=== PATIENT | female | born 1950 | race Caucasian/White ===

== ENCOUNTER 2018-06-19 05:14 | Inpatient (IN) | payer MEDICARE, MEDICAID ==
[~2018-06-19] VITALS: Ht 171.4 cm; Wt 88.5 kg
[~2018-06-19 05:14] MED LIST: CHOL400T PO; DAPA10TA PO; DILT-26 PO; DULO60CA44 PO; FISH1CAP2 PO; GABA-531 PO; HYDR-4009 PO; LEVO125T8 PO; LEVVL SQ; LOSA50TA20 PO; MONT10TA24 PO; PROAIR HFA INH; THIA100T72 PO; TIZA4TAB4 PO; TRAM50TA3 PO; UBID1CAP54 PO; novolog SUBCUT; victoza SUBCUT
[2018-06-19] MEDS ORDERED: SODIUM CHLORIDE 0.9% 1,000 ML IV ONE (06:10)
[2018-06-19] MEDS ORDERED: SODIUM CHLORIDE 0.9% 1000ML BAG (SEPSIS BOLUS) IV ONE (06:15)
[2018-06-19 06:50] LABS: BASOPHILS % 0.7 % (0.0-2.0); EOSINOPHILS % 4.3 % (0.0-5.0); HEMATOCRIT. 41.3 % (36.0-48.0); HEMOGLOBIN. 13.8 g/dL (12.0-16.0); LYMPHOCYTES % 50.6 % (20.0-50.0); MEAN CORPUSCULAR HEMOGLOBIN 30.2 pg (28.0-32.0); MEAN CORPUSCULAR VOLUME 90.1 fL (81.0-99.0); MEAN PLATELET VOLUME 7.9 fl (7.4-10.4); MONOCYTES % 8.6 % (2.0-8.0); NEUTROPHILS % 35.8 % (40.0-76.0); PLATELET 225 x1000/uL (130-400); RED BLOOD CELL COUNT 4.58 mill/uL (4.2-5.4); RED CELL DISTRIBUTION WIDTH 13.5 % (11.6-14.6)
[2018-06-19 06:55] LABS: INR 0.9; PROTHROMBIN TIME 9.2 sec (9.1-11.1)
[2018-06-19 06:57] LABS: CHLORIDE 100 mEq/L (98-107)
[2018-06-19 07:05] LABS: BETA HYDROXYBUTYRATE 0.1 mMol/L (0.0-0.3)
[2018-06-19] MEDS ORDERED: LIDOCAINE HCL 1% 20ML VIAL (Pyxis) INJ ONE (08:05)
[2018-06-19 08:22] LABS: CLARITY URINE CLEAR (CLEAR); COLOR URINE YELLOW (YELLOW); KETONES URINE NEGATIVE (NEGATIVE); LEUKOCYTE ESTERASE URINE NEGATIVE (NEGATIVE); NITRITE URINE NEGATIVE (NEGATIVE); OCCULT BLOOD URINE NEGATIVE (NEGATIVE); PROTEIN URINE NEGATIVE (NEGATIVE); SPECIFIC GRAVITY URINE 1.046 (1.005-1.030); UROBILINOGEN URINE 0.2 E.U./dL (0.2-1.0)
[2018-06-19] MEDS ORDERED: ONDANSETRON HCL 4MG/2ML INJ IV STA (08:30)
[2018-06-19] MEDS ORDERED: MORPHINE SULFATE 10 MG/ML CPJ IV STA (08:52)
[2018-06-19 15:40] VITALS: BP 144/63
[2018-06-19] MEDS ORDERED: CARB1TAB5 PO (16:40)
[2018-06-19] MEDS ORDERED: ALBU6.7H INH (16:40)
[2018-06-19] MEDS ORDERED: AMLO10TA80 PO (16:40)
[2018-06-19] MEDS ORDERED: PANT40TA4 PO (16:40)
[2018-06-19] MEDS ORDERED: IPRATROPIUM/ALBUTEROL 0.5-3(2.5)MG/3ML NEB HHN PRN (18:30)
[2018-06-19] MEDS ORDERED: DEXTROSE 50% WATER 50ML SYRINGE IV PRN (18:30)
[2018-06-19] MEDS: BLOOD SUGAR DIAGNOSTIC STRIP TEST SCH ×2 (18:31→20:22)
[2018-06-19 20:00] VITALS: BP 142/70
[2018-06-19] MEDS: AMLODIPINE 10MG TABLET PO SCH (20:20)
[2018-06-19] MEDS: MONTELUKAST SODIUM 10MG TABLET PO SCH (20:20)
[2018-06-19] MEDS: CARBIDOPA/LEVODOPA 25/250MG TABLET PO SCH (20:21)
[2018-06-19] MEDS: HYDROCODONE/ACETAMINOPHEN 10/325MG TABLET PO PRN (20:22)
[2018-06-19] MEDS: SODIUM CHLORIDE 0.45% 1,000 ML IV SCH (20:28)
[2018-06-19] MEDS: INSULIN LISPRO 100 UNITS/ML SUBCUT SCH (20:31)
[2018-06-19] MEDS: ENOXAPARIN 40MG/0.4ML SYR SUBCUT SCH (20:43)
[2018-06-19] MEDS: TRAMADOL 50MG TABLET PO PRN (21:56)
[2018-06-20] VITALS: BP 146/66
[2018-06-20] MEDS: HYDROCODONE/ACETAMINOPHEN 10/325MG TABLET PO PRN ×4 (02:14→22:26)
[2018-06-20] MEDS: TRAMADOL 50MG TABLET PO PRN ×2 (03:33→12:39)
[2018-06-20 04:00] VITALS: BP_SYST 112; BP_SYST 144; BP_DIAS 60; BP_DIAS 68; BP_DIAS 75
[2018-06-20] MEDS: BLOOD SUGAR DIAGNOSTIC STRIP TEST SCH ×4 (05:43→21:38)
[2018-06-20] MEDS: INSULIN LISPRO 100 UNITS/ML SUBCUT SCH ×7 (06:47→22:12)
[2018-06-20] MEDS ORDERED: DEXTROSE 50% WATER 50ML SYRINGE IV PRN (08:00)
[2018-06-20] MEDS: AMLODIPINE 10MG TABLET PO SCH ×2 (09:39→22:11)
[2018-06-20] MEDS: PANTOPRAZOLE 40MG DR TABLET PO SCH (09:39)
[2018-06-20] MEDS: DULOXETINE HCL 60MG DR CAPSULE PO SCH (09:39)
[2018-06-20] MEDS: GABAPENTIN 400MG CAPSULE PO SCH (09:39)
[2018-06-20] MEDS: LEVOTHYROXINE SODIUM 125MCG TABLET PO SCH (09:39)
[2018-06-20] MEDS: CARBIDOPA/LEVODOPA 25/250MG TABLET PO SCH ×3 (11:39→22:10)
[2018-06-20 12:00] VITALS: BP 145/66
[2018-06-20 16:00] VITALS: BP_SYST 105; BP_SYST 118; BP_SYST 124; BP_DIAS 57; BP_DIAS 62; BP_DIAS 64
[2018-06-20] MEDS: MONTELUKAST SODIUM 10MG TABLET PO SCH (17:09)
[2018-06-20] MEDS: SODIUM CHLORIDE 0.45% 1,000 ML IV SCH (17:10)
[2018-06-20 20:00] VITALS: BP_SYST 122; BP_SYST 125; BP_SYST 144; BP_DIAS 59; BP_DIAS 64; BP_DIAS 69
[2018-06-20] MEDS: ENOXAPARIN 40MG/0.4ML SYR SUBCUT SCH (22:11)
[2018-06-20] MEDS: TRESIBA 100 UNIT/ML SQ SCH (22:13)
[2018-06-20] MEDS: VICTOZA 18 MG/3 ML SQ SCH (22:13)
[2018-06-21] VITALS: BP 143/71
[2018-06-21] MEDS: TRAMADOL 50MG TABLET PO PRN ×2 (00:34→23:07)
[2018-06-21 03:08] LABS: CLARITY URINE CLEAR (CLEAR); COLOR URINE YELLOW (YELLOW); KETONES URINE NEGATIVE (NEGATIVE); LEUKOCYTE ESTERASE URINE 2+ (NEGATIVE); NITRITE URINE NEGATIVE (NEGATIVE); OCCULT BLOOD URINE 1+ (NEGATIVE); PH URINE 5.5 (4.5-8.0); PROTEIN URINE NEGATIVE (NEGATIVE); SPECIFIC GRAVITY URINE 1.018 (1.005-1.030); UROBILINOGEN URINE 0.2 E.U./dL (0.2-1.0)
[2018-06-21 04:00] VITALS: BP 134/65
[2018-06-21] MEDS: HYDROCODONE/ACETAMINOPHEN 10/325MG TABLET PO PRN ×3 (05:55→16:44)
[2018-06-21] MEDS: BLOOD SUGAR DIAGNOSTIC STRIP TEST SCH ×4 (07:40→21:09)
[2018-06-21 08:00] VITALS: BP 130/78
[2018-06-21] MEDS: LEVOTHYROXINE SODIUM 125MCG TABLET PO SCH (09:20)
[2018-06-21] MEDS: DULOXETINE HCL 60MG DR CAPSULE PO SCH (09:20)
[2018-06-21] MEDS: GABAPENTIN 400MG CAPSULE PO SCH (09:20)
[2018-06-21] MEDS: PANTOPRAZOLE 40MG DR TABLET PO SCH (09:20)
[2018-06-21] MEDS: AMLODIPINE 10MG TABLET PO SCH ×2 (09:20→21:13)
[2018-06-21] MEDS: INSULIN LISPRO 100 UNITS/ML SUBCUT SCH ×4 (09:22→21:00)
[2018-06-21 09:32] LABS: BASOPHILS % 0.2 % (0.0-2.0); EOSINOPHILS % 4.1 % (0.0-5.0); HEMATOCRIT. 40.9 % (36.0-48.0); LYMPHOCYTES % 42.9 % (20.0-50.0); MEAN CORPUSCULAR HEMOGLOBIN 30.2 pg (28.0-32.0); MEAN CORPUSCULAR VOLUME 88.5 fL (81.0-99.0); MEAN PLATELET VOLUME 7.7 fl (7.4-10.4); MONOCYTES % 6.5 % (2.0-8.0); NEUTROPHILS % 46.3 % (40.0-76.0); PLATELET 222 x1000/uL (130-400); RED BLOOD CELL COUNT 4.62 mill/uL (4.2-5.4); RED CELL DISTRIBUTION WIDTH 13.4 % (11.6-14.6)
[2018-06-21 09:42] LABS: CHLORIDE 99 mEq/L (98-107)
[2018-06-21] MEDS: CARBIDOPA/LEVODOPA 25/250MG TABLET PO SCH ×3 (11:49→21:12)
[2018-06-21 12:00] VITALS: BP 144/77
[2018-06-21 16:00] VITALS: BP_SYST 123; BP_SYST 98; BP_DIAS 61; BP_DIAS 74
[2018-06-21] MEDS: MONTELUKAST SODIUM 10MG TABLET PO SCH (16:43)
[2018-06-21] MEDS ORDERED: ONDANSETRON HCL 4MG/2ML INJ IV PRN (19:45)
[2018-06-21] MEDS: SODIUM CHLORIDE 0.45% 1,000 ML IV SCH (19:56)
[2018-06-21 20:00] VITALS: BP_SYST 121; BP_SYST 142; BP_SYST 148; BP_DIAS 61; BP_DIAS 65; BP_DIAS 74
[2018-06-21] MEDS ORDERED: LEVOFLOXACIN 500MG PREMIX 100 ML IV SCH (21:00)
[2018-06-21] MEDS: ENOXAPARIN 40MG/0.4ML SYR SUBCUT SCH (21:11)
[2018-06-21] MEDS: TRESIBA 100 UNIT/ML SQ SCH (21:13)
[2018-06-21] MEDS: VICTOZA 18 MG/3 ML SQ SCH (21:19)
[2018-06-22] VITALS: BP 143/78
[2018-06-22] MEDS ORDERED: LEVOFLOXACIN 500MG PREMIX 100 ML IV SCH (01:00)
[2018-06-22 04:00] VITALS: BP_SYST 125; BP_SYST 143; BP_SYST 149; BP_DIAS 74; BP_DIAS 81
[2018-06-22] MEDS: HYDROCODONE/ACETAMINOPHEN 10/325MG TABLET PO PRN ×2 (05:42→12:44)
[2018-06-22] MEDS: BLOOD SUGAR DIAGNOSTIC STRIP TEST SCH ×2 (06:52→12:40)
[2018-06-22] MEDS: LEVOTHYROXINE SODIUM 125MCG TABLET PO SCH (07:01)
[2018-06-22] MEDS: SODIUM CHLORIDE 0.45% 1,000 ML IV SCH (07:15)
[2018-06-22 08:00] VITALS: BP 121/76
[2018-06-22] MEDS: DULOXETINE HCL 60MG DR CAPSULE PO SCH (09:18)
[2018-06-22] MEDS: GABAPENTIN 400MG CAPSULE PO SCH (09:18)
[2018-06-22] MEDS: AMLODIPINE 10MG TABLET PO SCH (09:20)
[2018-06-22] MEDS: INSULIN LISPRO 100 UNITS/ML SUBCUT SCH ×2 (09:22→13:49)
[2018-06-22] MEDS: PANTOPRAZOLE 40MG DR TABLET PO SCH (09:23)
[2018-06-22] MEDS: CARBIDOPA/LEVODOPA 25/250MG TABLET PO SCH ×2 (10:45→16:12)
[2018-06-22 12:00] VITALS: BP_SYST 122; BP_SYST 135; BP_SYST 147; BP_DIAS 64; BP_DIAS 73; BP_DIAS 78
[2018-06-22] MEDS: MONTELUKAST SODIUM 10MG TABLET PO SCH (16:12)
[2018-06-22 16:30] VITALS: BP 138/77
[2018-06-22 18:22] VITALS: BP 138/77
== END 2018-06-22 19:12 | disposition home or self-care (01) | DRG 312 ==
LOC: ER 08:34 → 7WST 09:57 → EDBEDREQSVC 10:02 → EDBEDREQ 10:02 → ENRESERV 13:45
PROVIDERS: ADMIT Internal Medicine; ATTEND Internal Medicine
PROC: 02HV33Z Insertion of Infusion Device into Superior Vena Cava, Percutaneous Approach (ICD-10-PCS; principal; 2018-06-19)
PROC: B548ZZA Ultrasonography of Superior Vena Cava, Guidance (ICD-10-PCS; 2018-06-19)
PROC: 4B02XSZ Measurement of Cardiac Pacemaker, External Approach (ICD-10-PCS; 2018-06-21)
DX: I95.1 Orthostatic hypotension (principal); E87.1 Hypo-osmolality and hyponatremia; N39.0 Urinary tract infection, site not specified; E11.65 Type 2 diabetes mellitus with hyperglycemia; E03.9 Hypothyroidism, unspecified; E11.42 Type 2 diabetes mellitus with diabetic polyneuropathy; E78.00 Pure hypercholesterolemia, unspecified; E86.0 Dehydration; G20 Parkinson's disease; G89.4 Chronic pain syndrome; I10 Essential (primary) hypertension; I25.10 Atherosclerotic heart disease of native coronary artery without angina pectoris; J06.9 Acute upper respiratory infection, unspecified; J44.9 Chronic obstructive pulmonary disease, unspecified; R74.0 Nonspecific elevation of levels of transaminase and lactic acid dehydrogenase [LDH]; Z79.4 Long term (current) use of insulin; Z82.49 Family history of ischemic heart disease and other diseases of the circulatory system; Z85.828 Personal history of other malignant neoplasm of skin; Z83.3 Family history of diabetes mellitus; Z95.0 Presence of cardiac pacemaker; Z88.8 Allergy status to other drugs, medicaments and biological substances; Z88.7 Allergy status to serum and vaccine
CPT/HCPCS: 36415; 36569; 70486; 71045; 76937; 80048; 82010; 82962; 83605; 83735; 83930; 84145; 84484; 87077; 87186; 92610; 93005; 93306; 93880; 97162; 97166; 99285; C1725; J1650; J1815; J1956; J2270; J2405; J3490; J7030

== ENCOUNTER 2019-02-05 11:51 | Emergency (ER) | payer MEDICARE, MEDICAID ==
[~2019-02-05] VITALS: Ht 170.2 cm; Wt 87.0 kg
[~2019-02-05 11:51] MED LIST changes: +ALBU6.7H INH; +AMLO10TA80 PO; +CARB1TAB5 PO; -DAPA10TA PO; -DILT-26 PO; -LEVVL SQ; -LOSA50TA20 PO; +PANT40TA4 PO; -PROAIR HFA INH; -UBID1CAP54 PO
[2019-02-05 13:07] VITALS: BP 135/60
== END 2019-02-05 13:08 | disposition home or self-care (01) ==
LOC: ER 11:51
DX: R21 Rash and other nonspecific skin eruption (principal); L29.8 Other pruritus; M19.90 Unspecified osteoarthritis, unspecified site; J45.909 Unspecified asthma, uncomplicated; J44.9 Chronic obstructive pulmonary disease, unspecified; E11.9 Type 2 diabetes mellitus without complications; I11.9 Hypertensive heart disease without heart failure; Z95.0 Presence of cardiac pacemaker; Z98.890 Other specified postprocedural states; Z79.899 Other long term (current) drug therapy; Z87.891 Personal history of nicotine dependence; Z88.8 Allergy status to other drugs, medicaments and biological substances
CPT/HCPCS: 99282

== ENCOUNTER 2019-12-12 09:56 | Emergency (ER) | payer MEDICARE, MEDICAID ==
[~2019-12-12] VITALS: Ht 167.6 cm; Wt 84.0 kg
[~2019-12-12 09:56] MED LIST changes: -ALBU6.7H INH; +ALBU6.7H11 INH; -MONT10TA24 PO; +MONT10TA26 PO; -TIZA4TAB4 PO; +TIZA4TAB5 PO
[2019-12-12] MEDS ORDERED: SODIUM CHLORIDE 0.9% 1,000 ML IV ONE (11:07)
[2019-12-12 11:31] LABS: BASOPHILS % 0.8 % (0.0-2.0); EOSINOPHILS % 5.3 % (0.0-5.0); HEMATOCRIT. 40.8 % (36.0-48.0); HEMOGLOBIN. 14.1 g/dL (12.0-16.0); LYMPHOCYTES % 50.4 % (20.0-50.0); MEAN CORPUSCULAR HEMOGLOBIN 30.7 pg (28.0-32.0); MEAN CORPUSCULAR VOLUME 88.9 fL (81.0-99.0); MEAN PLATELET VOLUME 7.4 fl (7.4-10.4); MONOCYTES % 8.9 % (2.0-8.0); NEUTROPHILS % 34.6 % (40.0-76.0); PLATELET 247 x1000/uL (130-400); RED BLOOD CELL COUNT 4.59 mill/uL (4.2-5.4); RED CELL DISTRIBUTION WIDTH 14.6 % (11.6-14.6)
[2019-12-12 11:36] LABS: CHLORIDE 106 mEq/L (98-107)
[2019-12-12] MEDS ORDERED: TRAMADOL 50MG TABLET PO ONE (13:15)
[2019-12-12 15:59] VITALS: BP 111/56
== END 2019-12-12 16:10 | disposition home or self-care (01) ==
LOC: ER 09:56
DX: R55 Syncope and collapse (principal); J44.9 Chronic obstructive pulmonary disease, unspecified; I11.9 Hypertensive heart disease without heart failure; E11.9 Type 2 diabetes mellitus without complications; G20 Parkinson's disease; Z79.899 Other long term (current) drug therapy; Z98.890 Other specified postprocedural states; Z88.8 Allergy status to other drugs, medicaments and biological substances; Z95.0 Presence of cardiac pacemaker; Z87.39 Personal history of other diseases of the musculoskeletal system and connective tissue
CPT/HCPCS: 36415; 71045; 80053; 83880; 84443; 84484; 85025; 93005; 96360; 99285; J7030